=== PATIENT | female | born 1960 | race Caucasian/White ===

== ENCOUNTER → 2017-03-11 | Outpatient (CLI) | payer OTHER, MEDICARE ==
[~2017-03-11] MED LIST: ALBU8.5H8 INH; ALBUTEROL; ASCO500W4 PO; ASPI-621 PO; ATARAX; ATARAX PO; CETI10TA24 PO; DILT120T4 PO; DOCU-131 PO; ESTR0.5G PO; ESTR1TAB15 PO; ESTR2TAB PO; FAMO-79 PO; FLUT10.6 INH; FLUT16SP2 NS; FLUTICASONE PROPIONATE; GABA100C PO; GAMMA GLOBULIN; HYDR10TA4 PO; IBUP200T64 PO; IMMU10VI7 IV; IMMU50VI2 IV; L.AC1CAP6 PO; LANS15TA6 PO; METO1TAB31 PO; NITR0.4T SL; PRAV20TA2 PO; UBID100C24 PO; VITAMIN D PO; VITAMIN E PO; VITAMIN K2 PO; [UNRECOGNIZED DRUG - OTHER] PO
== END | disposition home or self-care (01) ==
LOC: CARD 09:11
PROVIDERS: ATTEND Internal Medicine
DX: I25.10 Atherosclerotic heart disease of native coronary artery without angina pectoris (principal); R42 Dizziness and giddiness; I10 Essential (primary) hypertension; E78.5 Hyperlipidemia, unspecified; Z87.891 Personal history of nicotine dependence
CPT/HCPCS: 93017; 93350

== ENCOUNTER 2017-11-20 11:37 | Emergency (ER) | payer OTHER, MEDICARE ==
[~2017-11-20] VITALS: Ht 170.2 cm; Wt 72.7 kg
[~2017-11-20 11:37] MED LIST changes: +DILT180C2 PO
[2017-11-20] MEDS ORDERED: NITROGLYCERIN OINT 2%, 1GM TP ONE ×3 (12:24→12:39)
[2017-11-20] MEDS ORDERED: SODIUM CHLORIDE FLUSH 10ML SYR IVF ONE (12:30)
[2017-11-20 12:50] LABS: BASOPHILS # (AUTO) 0.02 x10^3/uL (0-0.1); BASOPHILS % (AUTO) 1 % (0-1); EOSINOPHILS # (AUTO) 0.11 x10^3/uL (0-0.4); EOSINOPHILS % (AUTO) 3 % (1-7); LYMPHOCYTES # (AUTO) 1.41 x10^3/uL (1-3.4); LYMPHOCYTES % (AUTO) 34 % (22-44); MD NO; MEAN CORPUSCULAR HEMOGLOBIN 29.9 pg (27.0-34.8); MEAN CORPUSCULAR HGB CONC 33.6 g/dL (32.4-35.8); MEAN CORPUSCULAR VOLUME 88.9 fL (80-100); MEAN PLATELET VOLUME 8.7 fL (7.4-10.4); MONOCYTES # (AUTO) 0.39 x10^3/uL (0.2-0.8); MONOCYTES % (AUTO) 10 % (2-9); NEUTROPHILS # (AUTO) 2.17 x10^3/uL (1.8-6.8); NEUTROPHILS % (AUTO) 53 % (42-75); PLATELET COUNT 262 x10^3/uL (130-400); RED BLOOD COUNT 4.84 x10^6/uL (3.82-5.3); RED CELL DISTRIBUTION WIDTH 13.6 % (9.6-15.2)
[2017-11-20 12:58] LABS: ALANINE AMINOTRANSFERASE 31 U/L (12-78); ALBUMIN 4.1 g/dL (3.4-5.0); ANION GAP 5 mmol/L (5-15); CALCIUM 8.8 mg/dL (8.5-10.1); CHLORIDE 109 mmol/L (98-107); CREATININE 0.64 mg/dL (0.55-1.02)
[2017-11-20 13:02] LABS: ALKALINE PHOSPHATASE 93 U/L (45-117); BILIRUBIN,TOTAL 0.6 mg/dL (0.2-1.0); TOTAL PROTEIN 7.9 g/dL (6.4-8.2); TROPONIN I < 0.015 ng/mL (0.000-0.045)
[2017-11-20] MEDS ORDERED: ACETAMINOPHEN 500 MG TABLET ONE (16:26)
[2017-11-20] MEDS ORDERED: ACETAMINOPHEN 500 MG TABLET PO ONE (16:30)
[2017-11-20 17:22] LABS: TROPONIN I < 0.015 ng/mL (0.000-0.045)
[2017-11-20 18:23] VITALS: BP 130/68
== END 2017-11-20 18:28 | disposition home or self-care (01) ==
LOC: ED 13:39
DX: R07.89 Other chest pain (principal); I10 Essential (primary) hypertension; E78.5 Hyperlipidemia, unspecified; J45.909 Unspecified asthma, uncomplicated
CPT/HCPCS: 0399T; 36415; 71045; 80053; 84484; 85025; 93005; 93306; 99285

== ENCOUNTER 2018-02-09 13:44 | Observation (INO) | payer OTHER, MEDICARE ==
[~2018-02-09] VITALS: Ht 170.2 cm; Wt 74.5 kg
[2018-02-09] MEDS ORDERED: LINA145C PO (14:26)
[2018-02-09] MEDS ORDERED: ISOS20TA3 PO (14:26)
[2018-02-09] MEDS ORDERED: DESO60CR TD (14:26)
[2018-02-09] MEDS ORDERED: AZEL137S4 NAS (14:26)
[2018-02-09 14:27] LABS: BASOPHILS # (AUTO) 0.03 x10^3/uL (0-0.1); BASOPHILS % (AUTO) 1 % (0-1); EOSINOPHILS # (AUTO) 0.13 x10^3/uL (0-0.4); EOSINOPHILS % (AUTO) 2 % (1-7); LYMPHOCYTES % (AUTO) 36 % (22-44); MD NO; MEAN CORPUSCULAR HEMOGLOBIN 29.8 pg (27.0-34.8); MEAN CORPUSCULAR HGB CONC 33.5 g/dL (32.4-35.8); MEAN CORPUSCULAR VOLUME 88.7 fL (80-100); MEAN PLATELET VOLUME 8.8 fL (7.4-10.4); MONOCYTES # (AUTO) 0.45 x10^3/uL (0.2-0.8); MONOCYTES % (AUTO) 8 % (2-9); NEUTROPHILS % (AUTO) 54 % (42-75); PLATELET COUNT 263 x10^3/uL (130-400); RED BLOOD COUNT 4.61 x10^6/uL (3.82-5.3); RED CELL DISTRIBUTION WIDTH 13.4 % (9.6-15.2)
[2018-02-09] MEDS ORDERED: SODIUM CHLORIDE FLUSH 10ML SYR IVF ONE (14:30)
[2018-02-09 14:33] LABS: ANION GAP 7 mmol/L (5-15); CALCIUM 8.8 mg/dL (8.5-10.1); CHLORIDE 106 mmol/L (98-107)
[2018-02-09 14:34] LABS: INTERNATIONAL NORMALIZED RATIO 0.95 (0.93-1.1); PROTHROMBIN TIME 9.9 Seconds (9.6-11.5)
[2018-02-09 14:38] LABS: ALANINE AMINOTRANSFERASE 36 U/L (12-78); ALKALINE PHOSPHATASE 93 U/L (45-117); BILIRUBIN,TOTAL 0.3 mg/dL (0.2-1.0); CREATININE 0.61 mg/dL (0.55-1.02); TOTAL PROTEIN 7.6 g/dL (6.4-8.2); TROPONIN I < 0.015 ng/mL (0.000-0.045)
[2018-02-09] MEDS ORDERED: CLINDAMYCIN 300 MG CAPSULE PO ONE (16:30)
[2018-02-09] MEDS ORDERED: FLUTICASONE NASAL SPRAY 16GM NAS PRN (16:30)
[2018-02-09] MEDS ORDERED: hydrALAzine 20 MG/ML, 1ML IVPush PRN (16:30)
[2018-02-09] MEDS ORDERED: NITROGLYCERIN 0.4 MG BOTTLE (25 TABS) SL SCH (16:30)
[2018-02-09] MEDS ORDERED: DOCUSATE 100 MG CAPSULE PO PRN (16:30)
[2018-02-09] MEDS ORDERED: ONDANSETRON 2MG/ML, 2ML IVPush PRN (16:30)
[2018-02-09] MEDS ORDERED: CLINDAMYCIN 300 MG CAPSULE ONE (16:40)
[2018-02-09 18:10] VITALS: BP 145/82
[2018-02-09] MEDS: CLINDAMYCIN 300 MG CAPSULE PO SCH (19:06)
[2018-02-09 19:59] VITALS: BP 146/96
[2018-02-09 20:32] LABS: TROPONIN I < 0.015 ng/mL (0.000-0.045)
[2018-02-09] MEDS: ACETAMINOPHEN 325 MG TABLET PO PRN (20:56)
[2018-02-09] MEDS ORDERED: PRAVASTATIN 20 MG TABLET PO SCH (21:00)
[2018-02-09] MEDS ORDERED: DILTIAZEM CD 180 MG CAP.ER.24H PO SCH (22:30)
[2018-02-09] MEDS ORDERED: FAMOTIDINE 20 MG TABLET PO SCH (22:30)
[2018-02-10 00:46] VITALS: BP 145/78
[2018-02-10] MEDS: CLINDAMYCIN 300 MG CAPSULE PO SCH ×2 (00:48→06:10)
[2018-02-10] MEDS: ACETAMINOPHEN 325 MG TABLET PO PRN (00:52)
[2018-02-10 02:02] LABS: BASOPHILS # (AUTO) 0.04 x10^3/uL (0-0.1); BASOPHILS % (AUTO) 1 % (0-1); EOSINOPHILS # (AUTO) 0.15 x10^3/uL (0-0.4); EOSINOPHILS % (AUTO) 2 % (1-7); LYMPHOCYTES # (AUTO) 2.51 x10^3/uL (1-3.4); LYMPHOCYTES % (AUTO) 41 % (22-44); MD NO; MEAN CORPUSCULAR HEMOGLOBIN 30.2 pg (27.0-34.8); MEAN CORPUSCULAR VOLUME 88.7 fL (80-100); MEAN PLATELET VOLUME 8.8 fL (7.4-10.4); MONOCYTES # (AUTO) 0.47 x10^3/uL (0.2-0.8); MONOCYTES % (AUTO) 8 % (2-9); NEUTROPHILS # (AUTO) 3.03 x10^3/uL (1.8-6.8); NEUTROPHILS % (AUTO) 49 % (42-75); PLATELET COUNT 241 x10^3/uL (130-400); RED BLOOD COUNT 4.41 x10^6/uL (3.82-5.3); RED CELL DISTRIBUTION WIDTH 13.2 % (9.6-15.2)
[2018-02-10 02:14] LABS: CALCIUM 8.5 mg/dL (8.5-10.1); CHOLESTEROL, TOTAL 192 mg/dL (140-239); TRIGLYCERIDES 98 mg/dL (50-200); VLDL CHOLESTEROL 20 mg/dL (0-25)
[2018-02-10 02:19] LABS: TROPONIN I < 0.015 ng/mL (0.000-0.045)
[2018-02-10 03:07] LABS: ANION GAP 12 mmol/L (5-15); CHLORIDE 104 mmol/L (98-107); CHOL/HDL RATIO 2.7; HDL CHOL % 38 % (28-40); HDL CHOLESTEROL (DIRECT) 72 mg/dL (40-60); LDL CHOLESTEROL,CALCULATED 100 mg/dL (54-169); LDL/HDL RATIO 1.4 (0.5-3.0)
[2018-02-10 06:18] VITALS: BP 119/78
[2018-02-10 07:25] VITALS: BP 134/78
[2018-02-10] MEDS ORDERED: CLIN300C8 PO (08:41)
[2018-02-10] MEDS ORDERED: FAMOTIDINE 20 MG TABLET PO SCH ×2 (09:00)
[2018-02-10] MEDS ORDERED: ISOSORBIDE MONONITRATE 20 MG TABLET PO SCH (09:00)
[2018-02-10] MEDS ORDERED: DILTIAZEM CD 180 MG CAP.ER.24H PO SCH (09:00)
[2018-02-10] MEDS ORDERED: hydrOXyzine 10 MG/5 ML ORAL SOL PO SCH (09:00)
[2018-02-11] MEDS ORDERED: IMMUNE GLOB (GAMUNEX) 10GM/100ML IV SCH (16:30)
== END 2018-02-10 10:00 | disposition home or self-care (01) ==
LOC: ED 16:01 → EDIP 16:02 → INTOOBSV 16:02 → ED 16:03 → 5SO 16:41 → DCLOUNGE 02-10 09:45
PROVIDERS: ADMIT Internal Medicine; ATTEND Internal Medicine
DX: R07.9 Chest pain, unspecified (principal); K12.2 Cellulitis and abscess of mouth; E87.6 Hypokalemia; K21.9 Gastro-esophageal reflux disease without esophagitis; E78.5 Hyperlipidemia, unspecified; C44.41 Basal cell carcinoma of skin of scalp and neck; J39.8 Other specified diseases of upper respiratory tract; I10 Essential (primary) hypertension; R73.9 Hyperglycemia, unspecified; I45.81 Long QT syndrome; D84.9 Immunodeficiency, unspecified; J45.909 Unspecified asthma, uncomplicated; K08.89 Other specified disorders of teeth and supporting structures; M79.7 Fibromyalgia; R53.82 Chronic fatigue, unspecified; Z85.00 Personal history of malignant neoplasm of unspecified digestive organ; Z85.828 Personal history of other malignant neoplasm of skin; Z90.49 Acquired absence of other specified parts of digestive tract; Z80.0 Family history of malignant neoplasm of digestive organs; Z88.6 Allergy status to analgesic agent; Z88.1 Allergy status to other antibiotic agents
CPT/HCPCS: 36415; 71046; 80048; 80053; 80061; 83735; 84484; 85025; 85610; 85730; 93005; 99285; G0378

== ENCOUNTER 2018-03-15 15:30 | Emergency (ER) | payer OTHER, MEDICARE ==
[~2018-03-15] VITALS: Ht 170.2 cm; Wt 74.0 kg
[~2018-03-15 15:30] MED LIST changes: +AZEL137S4 NAS; +CLIN300C8 PO; +DESO60CR TD; +ISOS20TA3 PO; +LINA145C PO
[2018-03-15 16:37] LABS: MICROSCOPIC AUTO
[2018-03-15 16:40] LABS: CULTURE INDICATED? YES
[2018-03-15] MEDS ORDERED: NITROFURANTOIN (MACROBID) 100 MG CAPSULE PO ONE (17:00)
[2018-03-15] MEDS ORDERED: NITROFURANTOIN (MACROBID) 100 MG CAPSULE ONE (17:04)
[2018-03-15 17:49] VITALS: BP 140/65
== END 2018-03-15 18:25 | disposition home or self-care (01) ==
LOC: ED 18:22
DX: N30.00 Acute cystitis without hematuria (principal); E78.5 Hyperlipidemia, unspecified; I10 Essential (primary) hypertension
CPT/HCPCS: 81001; 87086; 99284

== ENCOUNTER → 2018-08-10 | Outpatient (CLI) | payer OTHER, MEDICARE ==
[~2018-08-10] MED LIST changes: -ASPI-621 PO; +ASPI81TA45 PO; +LOVA20TA2 PO; +NITR100C56 PO; +OMNIPAQUE 350 MG/ML, 100ML BOTTLE ONE
== END | disposition home or self-care (01) ==
LOC: CFH 11:36
PROVIDERS: ATTEND Family Medicine
DX: K44.9 Diaphragmatic hernia without obstruction or gangrene (principal); C49.A2 Gastrointestinal stromal tumor of stomach; M51.36 Other intervertebral disc degeneration, lumbar region; Z90.49 Acquired absence of other specified parts of digestive tract
CPT/HCPCS: 71260; 74177; 82565; Q9967

== ENCOUNTER 2018-11-10 16:11 | Emergency (ER) | payer OTHER, MEDICARE ==
[~2018-11-10] VITALS: Ht 170.2 cm; Wt 72.8 kg
[~2018-11-10 16:11] MED LIST changes: -NITR0.4T SL; +NITR0.4T41 SL; -OMNIPAQUE 350 MG/ML, 100ML BOTTLE ONE
--- NOTE | 2018-11-10 16:50 | NUR ---
[facility]
[2018-11-10 16:55] LABS: BASOPHILS # (AUTO) 0.03 x10^3/uL (0-0.1); BASOPHILS % (AUTO) 0 % (0-1); EOSINOPHILS # (AUTO) 0.08 x10^3/uL (0-0.4); EOSINOPHILS % (AUTO) 1 % (1-7); HCT (SEDRATE) 43.1 % (34.6-47.8); LYMPHOCYTES # (AUTO) 1.91 x10^3/uL (1-3.4); LYMPHOCYTES % (AUTO) 30 % (22-44); MD NO; MEAN CORPUSCULAR HGB CONC 33.5 g/dL (32.4-35.8); MEAN CORPUSCULAR VOLUME 89.6 fL (80-100); MEAN PLATELET VOLUME 8.3 fL (7.4-10.4); MONOCYTES % (AUTO) 8 % (2-9); NEUTROPHILS # (AUTO) 3.88 x10^3/uL (1.8-6.8); NEUTROPHILS % (AUTO) 61 % (42-75); PLATELET COUNT 284 x10^3/uL (130-400); RED BLOOD COUNT 4.82 x10^6/uL (3.82-5.3); RED CELL DISTRIBUTION WIDTH 13.1 % (9.6-15.2)
[2018-11-10 17:05] LABS: ALBUMIN 4.4 g/dL (3.4-5.0); ANION GAP 5 mmol/L (5-15); CALCIUM 9.9 mg/dL (8.5-10.1); CHLORIDE 104 mmol/L (98-107); CREATININE 0.76 mg/dL (0.55-1.02)
--- NOTE | 2018-11-10 17:35 | NUR ---
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 PT REPORTS THAT SHE HAS HAD PAIN FOR ABOUT 3 MONTHS AND HAVE BEEN UNABLE TO FIND A REASON TO HYDE SHE IS HAVING THAT PAIN. PT REPORTS NO TRUAMA BUT DOES HAVE COMPLICATED MEDICAL HX AND IS IMMUNOCOMPROMISED. PT CONNECTED TO ALL MONITORS AND LARGE BORE PIV PLACED. PT CONNECTED TO MONITORS AND CALL LIGHT IN REACH.
[2018-11-10] MEDS ORDERED: OMNIPAQUE 350 MG/ML, 75ML BOTTLE ONE (17:40)
--- NOTE | 2018-11-10 17:48 | NUR ---
PT GIVEN WARM BLANKET AND PILLOW FOR COMFORT.
[2018-11-10 18:11] VITALS: BP 122/78
--- NOTE | 2018-11-10 18:12 | NUR ---
CHART UP FOR RECHECK.
--- NOTE | 2018-11-10 18:49 | NUR ---
TASK RN: ERP AT BEDSIDE DISCUSSING FINDINGS/DISPO WITH PT. PT APPEARS FRUSTRATED WITH RESULTS. AWAITING FURTHER ORDERS.
--- NOTE | 2018-11-10 19:15 | NUR ---
Patient/Caregiver given discharge instructions and they have confirmed that they understand the instructions. Patient ambulatory with steady gait.
== END 2018-11-10 19:17 | disposition home or self-care (01) ==
LOC: ED 18:25
DX: K05.5 Other periodontal diseases (principal); J45.909 Unspecified asthma, uncomplicated; M79.7 Fibromyalgia; I10 Essential (primary) hypertension; E78.5 Hyperlipidemia, unspecified; Z88.6 Allergy status to analgesic agent; Z91.018 Allergy to other foods; Z88.1 Allergy status to other antibiotic agents; Z88.5 Allergy status to narcotic agent; Z91.012 Allergy to eggs; Z91.040 Latex allergy status; Z88.8 Allergy status to other drugs, medicaments and biological substances; Z87.891 Personal history of nicotine dependence
CPT/HCPCS: 36415; 70487; 80048; 82040; 85025; 85651; 86140; 87040; 93005; 99284; Q9967

== ENCOUNTER 2019-04-12 14:52 | Observation (INO) | payer OTHER, MEDICARE ==
[~2019-04-12] VITALS: Ht 170.2 cm; Wt 65.3 kg
[~2019-04-12 14:52] MED LIST changes: +FLUC100T4 PO
--- NOTE | 2019-04-12 15:10 | NUR ---
PT STATES HR REGULAR WHEN AT REST AND THAT IT WILL GO UP TO 140 WHEN EXERTING HERSELF X2 DAYS. ADDITONALLY EPISODE OF CP TODAY THAT WAS RELIEVED BY NITRO. PT ATTRIBUTES SYMPTOMS TO UNDERLYING CHRONIC CARDIAC CONDITIONS COUPLED WITH REACTION TO TAKING DIFLUCAN AND LOVATSTATIN SO DISCONTINUED BOTH
[2019-04-12 15:38] LABS: BASOPHILS # (AUTO) 0.02 x10^3/uL (0-0.1); BASOPHILS % (AUTO) 1 % (0-1); EOSINOPHILS # (AUTO) 0.05 x10^3/uL (0-0.4); EOSINOPHILS % (AUTO) 1 % (1-7); LYMPHOCYTES # (AUTO) 1.46 x10^3/uL (1-3.4); LYMPHOCYTES % (AUTO) 35 % (22-44); MD NO; MEAN CORPUSCULAR HEMOGLOBIN 29.4 pg (27.0-34.8); MEAN CORPUSCULAR HGB CONC 32.5 g/dL (32.4-35.8); MEAN CORPUSCULAR VOLUME 90.7 fL (80-100); MEAN PLATELET VOLUME 8.7 fL (7.4-10.4); MONOCYTES % (AUTO) 7 % (2-9); NEUTROPHILS # (AUTO) 2.29 x10^3/uL (1.8-6.8); NEUTROPHILS % (AUTO) 56 % (42-75); PLATELET COUNT 227 x10^3/uL (130-400); RED BLOOD COUNT 4.43 x10^6/uL (3.82-5.3); RED CELL DISTRIBUTION WIDTH 13.1 % (9.6-15.2)
[2019-04-12 15:50] LABS: ALBUMIN 3.8 g/dL (3.4-5.0); ANION GAP 10 mmol/L (5-15); CALCIUM 8.2 mg/dL (8.5-10.1); CHLORIDE 106 mmol/L (98-107); CREATININE 0.56 mg/dL (0.55-1.02)
[2019-04-12 15:54] LABS: TROPONIN I < 0.015 ng/mL (0.000-0.045)
--- NOTE | 2019-04-12 16:16 | NUR ---
RESTING COMFORTABLY, CONTINUE TO MONITOR
--- NOTE | 2019-04-12 16:59 | NUR ---
PROVIDED FOOD TRAY
--- NOTE | 2019-04-12 18:34 | NUR ---
AFTER EATING FOOD, BLOOD GLUCOSE IMPROVED TO 104. PT AWARE OF INTENTION TO ADMIT. UP TO BATHROOM X1 WITHOUT ASSISTANCE.
--- NOTE | 2019-04-12 19:09 | NUR ---
REPORT TO LEONARDO DELAROSA
--- NOTE | 2019-04-12 19:23 | NUR ---
Viviana álvarez in EDM - 04/12/19 at 1926 by TSHUTES NEW IV PLACED. READY FOR CT.
--- NOTE | 2019-04-12 19:26 | NUR ---
BACK FROM CT.
[2019-04-12] MEDS ORDERED: OMNIPAQUE 350 MG/ML, 100ML BOTTLE ONE (19:39)
[2019-04-12] MEDS ORDERED: ONDANSETRON 2MG/ML, 2ML IVPush PRN (22:00)
[2019-04-12] MEDS ORDERED: ACETAMINOPHEN 325 MG TABLET PO PRN (22:00)
[2019-04-12] MEDS ORDERED: DOCUSATE 100 MG CAPSULE PO PRN (22:00)
[2019-04-12] MEDS ORDERED: DIPHENHYDRAMINE 25 MG CAPSULE PO PRN (22:00)
[2019-04-12] MEDS ORDERED: NITROGLYCERIN 0.4 MG BOTTLE (25 TABS) SL PRN (22:00)
[2019-04-12 22:37] VITALS: BP 132/81
[2019-04-12] MEDS: ENOXAPARIN 40 MG/0.4 ML SQ SCH (22:37)
[2019-04-12] MEDS: DILTIAZEM CD 180 MG CAP.ER.24H PO SCH (22:37)
[2019-04-12 23:22] LABS: TROPONIN I < 0.015 ng/mL (0.000-0.045)
[2019-04-12] MEDS: ACETAMINOPHEN 325 MG TABLET PO PRN (23:38)
[2019-04-12] MEDS: DIPHENHYDRAMINE 25 MG CAPSULE PO PRN (23:38)
[2019-04-13 01:38] VITALS: BP 115/72
[2019-04-13 05:41] LABS: ANION GAP 5 mmol/L (5-15); CHLORIDE 108 mmol/L (98-107); CREATININE 0.59 mg/dL (0.55-1.02)
[2019-04-13 05:46] LABS: TROPONIN I < 0.015 ng/mL (0.000-0.045)
[2019-04-13 05:48] LABS: BASOPHILS # (AUTO) 0.04 x10^3/uL (0-0.1); BASOPHILS % (AUTO) 1 % (0-1); EOSINOPHILS # (AUTO) 0.14 x10^3/uL (0-0.4); EOSINOPHILS % (AUTO) 3 % (1-7); LYMPHOCYTES # (AUTO) 2.82 x10^3/uL (1-3.4); LYMPHOCYTES % (AUTO) 51 % (22-44); MD NO; MEAN CORPUSCULAR HEMOGLOBIN 29.6 pg (27.0-34.8); MEAN CORPUSCULAR HGB CONC 33.3 g/dL (32.4-35.8); MEAN CORPUSCULAR VOLUME 88.9 fL (80-100); MEAN PLATELET VOLUME 9.1 fL (7.4-10.4); MONOCYTES # (AUTO) 0.47 x10^3/uL (0.2-0.8); MONOCYTES % (AUTO) 9 % (2-9); NEUTROPHILS # (AUTO) 2.09 x10^3/uL (1.8-6.8); NEUTROPHILS % (AUTO) 38 % (42-75); PLATELET COUNT 218 x10^3/uL (130-400); RED BLOOD COUNT 4.35 x10^6/uL (3.82-5.3); RED CELL DISTRIBUTION WIDTH 12.9 % (9.6-15.2)
[2019-04-13 07:15] VITALS: BP 122/74
[2019-04-13 12:57] VITALS: BP 129/76
[2019-04-13] MEDS: ACETAMINOPHEN 325 MG TABLET PO PRN ×2 (16:27→21:48)
[2019-04-13 19:52] VITALS: BP 111/68
[2019-04-13] MEDS: DILTIAZEM CD 180 MG CAP.ER.24H PO SCH (21:36)
[2019-04-13] MEDS: ENOXAPARIN 40 MG/0.4 ML SQ SCH (21:37)
[2019-04-13] MEDS: DIPHENHYDRAMINE 25 MG CAPSULE PO PRN (21:48)
[2019-04-14 01:27] VITALS: BP 114/70
[2019-04-14 07:00] LABS: FREE T4 (FREE THYROXINE) 0.94 ng/dL (0.76-1.46)
[2019-04-14 07:31] VITALS: BP 115/69
[2019-04-14 10:30] LABS: ALANINE AMINOTRANSFERASE 39 U/L (12-78); ALBUMIN 3.8 g/dL (3.4-5.0)
[2019-04-14 10:32] LABS: ALKALINE PHOSPHATASE 91 U/L (45-117); BILIRUBIN,TOTAL 0.5 mg/dL (0.2-1.0); TOTAL PROTEIN 7.1 g/dL (6.4-8.2)
[2019-04-14 10:34] LABS: BILIRUBIN, DIRECT < 0.1 mg/dL (0.1-0.2); BILIRUBIN,INDIRECT 0.4 mg/dL (0.0-2.0)
[2019-04-14 13:15] VITALS: BP 114/72
== END 2019-04-14 13:05 | disposition home or self-care (01) ==
LOC: ED 17:32 → EDIP 19:24 → INTOOBSV 19:24 → 5SO 21:07 → DCLOUNGE 04-14 13:00
PROVIDERS: ADMIT Internal Medicine; ATTEND Internal Medicine
DX: R07.89 Other chest pain (principal); E16.2 Hypoglycemia, unspecified; I10 Essential (primary) hypertension; E78.5 Hyperlipidemia, unspecified; C44.41 Basal cell carcinoma of skin of scalp and neck; K21.9 Gastro-esophageal reflux disease without esophagitis; J45.909 Unspecified asthma, uncomplicated; I42.9 Cardiomyopathy, unspecified
CPT/HCPCS: 36415; 71045; 71275; 80048; 80076; 82040; 82962; 83735; 84100; 84439; 84443; 84484; 85025; 85379; 93005; 93306; 99284; G0378; J1650; Q0163; Q9967; 96372

== ENCOUNTER 2020-11-02 14:41 | Emergency (ER) | payer OTHER, MEDICARE ==
[~2020-11-02] VITALS: Ht 170.2 cm; Wt 62.8 kg
[~2020-11-02 14:41] MED LIST changes: -CETI10TA24 PO; +CETI10TA76 PO; -CLIN300C8 PO; +CLIN300C9 PO; +FAMO10TA31 PO; +HYDR-2995 PO; -HYDR10TA4 PO; +ISOS20TA10 PO; -ISOS20TA3 PO; +PRUC1TAB PO
[2020-11-02 16:32] LABS: BASOPHILS % (AUTO) 1 % (0-1); EOSINOPHILS % (AUTO) 1 % (1-7); LYMPHOCYTES % (AUTO) 32 % (22-44); MEAN CORPUSCULAR HGB CONC 32.9 g/dL (32.4-35.8); MEAN PLATELET VOLUME 8.1 fL (7.4-10.4); MONOCYTES % (AUTO) 7 % (2-9); NEUTROPHILS % (AUTO) 59 % (42-75); PLATELET COUNT 239 x10^3/uL (130-400); RED BLOOD COUNT 4.52 x10^6/uL (3.82-5.3); RED CELL DISTRIBUTION WIDTH 13.6 % (9.6-15.2)
[2020-11-02 16:41] LABS: ALANINE AMINOTRANSFERASE 34 U/L (12-78); ALBUMIN 4.2 g/dL (3.4-5.0); ANION GAP 5 mmol/L (5-15); CHLORIDE 108 mmol/L (98-107); CREATININE 0.47 mg/dL (0.55-1.02)
[2020-11-02 16:44] LABS: ALKALINE PHOSPHATASE 90 U/L (45-117); BILIRUBIN,TOTAL 0.4 mg/dL (0.2-1.0); TOTAL PROTEIN 7.5 g/dL (6.4-8.2)
[2020-11-02 16:51] LABS: MICROSCOPIC INDICATED
--- NOTE | 2020-11-02 16:54 | NUR ---
WEDDING PHOTOGRAPHER: PT TO ROOM FROM [facility] QUIRO[facility]
--- NOTE | 2020-11-02 16:56 | NUR ---
PATIENT WALKED BACK FROM LOBBY WITH RLQ PAIN SINCE 0600 THIS MORNING. PER PATIENT PAIN WOKE HER UP FROM HER SLEEP AND IT IS PAINFUL WHEN SHE WALKS. PATIENT NAUSEATED, DENIES VOMITING/DIARRHEA. NO FEVER. CONNECTED TO MONITOR, MIKIE MORALES, MOM AT BEDSIDE, CALL LIGHT WITHIN REACH.
--- NOTE | 2020-11-02 17:20 | NUR ---
ERMD AT BEDSIDE FOR EVALUATION.
--- NOTE | 2020-11-02 17:58 | NUR ---
PATIENT RESTING IN [facility], CONNECTED TO MONITOR, VSS, MOM AT BEDSIDE, CALL LIGHT WITHIN REACH. WAITING FOR CT SCAN.
[2020-11-02] MEDS ORDERED: SODIUM CHLORIDE FLUSH 10ML SYR IVF ONE (18:00)
--- NOTE | 2020-11-02 18:22 | NUR ---
SPOKE WITH CT, CT STAFF STATES PATIENT IS NEXT TO BE SCANNED.
--- NOTE | 2020-11-02 18:36 | NUR ---
PATIENT TO CT SCAN.
--- NOTE | 2020-11-02 18:53 | NUR ---
REPORT RECEIVED FROM ISAURA ISSA
[2020-11-02] MEDS ORDERED: OMNIPAQUE 350 MG/ML, 100ML BOTTLE ONE (18:57)
--- NOTE | 2020-11-02 19:00 | NUR ---
PT BACK FROM CT, RESTING ON GURMATIAS, DENIES NEEDS AT THIS TIME.
[2020-11-02 20:59] VITALS: BP 158/79
--- NOTE | 2020-11-02 21:00 | NUR ---
Patient given discharge instructions and they have confirmed that they understand the instructions. Patient ambulatory with steady gait. IV removed
== END 2020-11-02 21:01 | disposition home or self-care (01) ==
LOC: ED 15:11
DX: N83.291 Other ovarian cyst, right side (principal); I10 Essential (primary) hypertension; E78.5 Hyperlipidemia, unspecified; Z90.49 Acquired absence of other specified parts of digestive tract; Z88.2 Allergy status to sulfonamides; Z88.5 Allergy status to narcotic agent; Z88.6 Allergy status to analgesic agent; Z88.8 Allergy status to other drugs, medicaments and biological substances; Z88.1 Allergy status to other antibiotic agents
CPT/HCPCS: 36415; 74177; 76830; 80053; 81001; 85025; 99285; Q9967

== ENCOUNTER 2021-01-26 05:37 | Emergency (ER) | payer OTHER, MEDICARE ==
[~2021-01-26] VITALS: Ht 170.2 cm; Wt 63.7 kg
--- NOTE | 2021-01-26 06:03 | NUR ---
ekg done in triage.
[2021-01-26 08:14] LABS: BASOPHILS % (AUTO) 1 % (0-1); EOSINOPHILS % (AUTO) 2 % (1-7); LYMPHOCYTES % (AUTO) 32 % (22-44); MEAN CORPUSCULAR HEMOGLOBIN 29.9 pg (27.0-34.8); MEAN CORPUSCULAR HGB CONC 33.5 g/dL (32.4-35.8); MEAN PLATELET VOLUME 8.2 fL (7.4-10.4); MONOCYTES % (AUTO) 7 % (2-9); NEUTROPHILS % (AUTO) 58 % (42-75); PLATELET COUNT 208 x10^3/uL (130-400); RED BLOOD COUNT 4.84 x10^6/uL (3.82-5.3); RED CELL DISTRIBUTION WIDTH 13.3 % (9.6-15.2)
--- NOTE | 2021-01-26 08:15 | NUR ---
fish butcher note: Pt to room from [facility], ambulatory with steady gait, MIKIE.
[2021-01-26 08:21] LABS: ALANINE AMINOTRANSFERASE 35 U/L (12-78); ALBUMIN 4.3 g/dL (3.4-5.0); ANION GAP 5 mmol/L (5-15); CALCIUM 8.9 mg/dL (8.5-10.1); CHLORIDE 107 mmol/L (98-107); CREATININE 0.46 mg/dL (0.55-1.02)
[2021-01-26 08:23] LABS: ALKALINE PHOSPHATASE 90 U/L (45-117); BILIRUBIN,TOTAL 0.5 mg/dL (0.2-1.0); TOTAL PROTEIN 8.2 g/dL (6.4-8.2)
--- NOTE | 2021-01-26 08:50 | NUR ---
PT WITH KNOWN OSTEOMYLITIS LEFT LOWER JAW, SCHED FOR SURGERY WITH DR VERMA ON FRIDAY. HX: PRIMARY IMMUNE DIFFICENCY PT NOT RESPONDING TO CLINDAMYCIN 300MG PO QID. SENT BY DR MARCUM FOR FURTHER EVAL. ER PROVIDER EVAL PENDING. VSS, CALL LIGHT W/I REACH.
--- NOTE | 2021-01-26 09:10 | NUR ---
PT AWARE OF NEED TO PROVIDE URINE SAMPLE.
--- NOTE | 2021-01-26 09:20 | NUR ---
REPORT OF PT FROM ISAURA OQUENDO AND ASSUMING CARE OF PT AT THIS TIME.
[2021-01-26 09:59] LABS: MICROSCOPIC NOT IND
--- NOTE | 2021-01-26 10:09 | NUR ---
PT URINE COLLECTED AND SENT TO LAB AT THIS TIME.
--- NOTE | 2021-01-26 11:59 | NUR ---
PT UPDATED ON POC AT THIS TIME. ALL QUESTIONS ANSWERED. PT RESTING IN GURNEY WITH NADN AND PT DENIES ANY NEEDS AT THIS TIME. VSS. CALL LIGHT IS WITHIN REACH.
[2021-01-26 13:31] VITALS: BP 167/84
--- NOTE | 2021-01-26 13:31 | NUR ---
report of pt to myesha moser. all questions answered.
--- NOTE | 2021-01-26 13:32 | NUR ---
TASK RN NOTE: DC ORDERS RECEIVED. PT GIVEN DC INSTRUCTIONS AND FOLLOW UP INSTRUCTIONS, EDUCATED REGARDING RETURN CRITERIA. PT A&O, RESPS EVEN AND UNLABORED, AMBULATORY TO DC DESK WITH STEADY GAIT, ALL QUESTIONS ANSWERED. PT ACCOPMANIED BY AT TIME OF DC.
== END 2021-01-26 13:33 | disposition home or self-care (01) ==
LOC: ED 10:44
DX: M27.2 Inflammatory conditions of jaws (principal); I10 Essential (primary) hypertension; Z87.891 Personal history of nicotine dependence
CPT/HCPCS: 36415; 71045; 80053; 81003; 83605; 84145; 85025; 87040; 93005; 99285

== ENCOUNTER → 2021-02-15 | Outpatient (CLI) | payer OTHER, MEDICARE | END | disposition home or self-care (01) | LOC: RAD 14:23 | PROVIDERS: ATTEND Internal Medicine Infectious Disease | DX: M27.2 Inflammatory conditions of jaws (principal); K21.9 Gastro-esophageal reflux disease without esophagitis; Z79.2 Long term (current) use of antibiotics; Z79.899 Other long term (current) drug therapy | CPT/HCPCS: 36573; C1751 ==